=== PATIENT | female | born 1985 | race African-American/Black ===

== ENCOUNTER 2023-04-30 08:18 | Emergency (ER) | payer OTHER ==
[~2023-04-30] VITALS: Ht 152.4 cm; Wt 80.7 kg
[2023-04-30 09:16] VITALS: BP 109/43; TEMP 99.5
== END 2023-04-30 09:16 | disposition home health service (06) ==
LOC: ED 08:18
DX: S93.401A Sprain of unspecified ligament of right ankle, initial encounter (principal); W01.0XXA Fall on same level from slipping, tripping and stumbling without subsequent striking against object, initial encounter
CPT/HCPCS: 99283